=== PATIENT | female | born 1995 | race Two or more races ===

== ENCOUNTER 2017-04-30 19:57 | Inpatient (IN) | payer MEDICAID ==
[~2017-04-30] VITALS: Ht 157.5 cm; Wt 56.7 kg
[2017-04-30 20:10] VITALS: BP 80/65
[2017-04-30] MEDS ORDERED: NKM (20:10)
[2017-04-30] MEDS ORDERED: Morphine Sulfate 4mg/ml Inj IVP ONE (20:45)
[2017-04-30 21:24] LABS: APPEARANCE,URINE VERY CLOUDY; KETONES,URINE 1+ (NEGATIVE); LEUKOCYTE ESTERASE ,URINE 3+ (NEGATIVE); NITRITE,URINE NEGATIVE (NEGATIVE); PH,URINE 5 (4.5-8.0); PROTEIN,URINE 4+ (NEGATIVE); UROBILINOGEN,URINE NORMAL MG/DL (0.0-1.0)
[2017-04-30 21:30] LABS: MEAN CORPUSCULAR HEMOGLOBIN 28.6 PG (27.0-31.0); MEAN CORPUSCULAR HGB CONC 32.7 G/DL (32.0-36.0); MEAN CORPUSCULAR VOLUME 88 FL (80-99); MEAN PLATELET VOLUME 6.7 FL (6.5-10.1); PLATELET COUNT 405 K/UL (150-450); RED BLOOD COUNT 4.78 M/UL (4.20-5.40); RED CELL DISTRIBUTION WIDTH 13.1 % (11.6-14.8)
[2017-04-30 21:33] LABS: CALCIUM 8.9 mg/dL (8.6-10.2); GLOMERULAR FILTRATION RATE 31.5 mL/min (>60); POTASSIUM 4.1 mEQ/L (3.4-4.9); TOTAL PROTEIN 7.3 g/dL (6.6-8.7)
[2017-04-30 21:42] LABS: BACTERIA,URINE MANY /HPF; RBC,URINE TNTC /HPF (0 - 2); SQUAMOUS EPITHELIAL CELL,UR FEW /LPF (NONE/OCC); WBC,URINE TNTC /HPF (0 - 2)
[2017-04-30] MEDS ORDERED: cefTRIAXone 1 GM in NS 55 ML IVPB ONE (22:00)
[2017-04-30 22:10] VITALS: BP 91/59
[2017-04-30 22:31] LABS: BAND NEUTROPHILS % (MANUAL) 16 % (0-8); EOSINOPHILS % (MANUAL) 3 % (0-3); LYMPHOCYTES % (MANUAL) 5 % (20-45); NEUTROPHILS % (MANUAL) 75 % (45-75); TOTAL CELLS COUNTED 100
[2017-04-30 22:33] LABS: BASOPHILS % (MANUAL) 0 % (0-2); PLATELET ESTIMATE INCREASED; PLATELET MORPHOLOGY NORMAL
[2017-04-30 22:34] LABS: MICROCYTES 1+; POLYCHROMASIA 1+
[2017-05-01] VITALS (8 sets, daily range): BP systolic 86–115; BP diastolic 44–76
--- NOTE | 2017-05-01 00:01 | Emergency Room Report ---
History of Present Illness General Chief Complaint: Abdominal Pain Source: Patient Present Illness HPI 21-year-old female with no past medical history. She presents with chief complaint of abdominal pain. She also had fever today. Abdominal pain been ongoing for last few days. Does have dysuria frequency. No hematuria. Nausea but no vomiting. [place] a week. Worse with walking and palpation. No diarrhea. Allergies: Coded Allergies: No Known Allergies (Unverified , 04/30/17) Patient History Past Medical History: none, see triage record, old chart reviewed Past Surgical History: none Pertinent Family History: none Social History: Reports: drug use, smoking Last Menstrual Period: unk Now: No Immunizations: other Reviewed Nursing Documentation: PMH: Agreed, PSxH: Agreed Nursing Documentation-PMH Past Medical History: No Stated History Review of Systems Constitutional: Reports: fever, weakness Eye: Denies: blurred vision, eye pain ENT: Denies: ear pain, nose congestion, throat swelling Respiratory: Denies: cough, shortness of breath Cardiovascular: Denies: chest pain, palpitations Gastrointestinal: Denies: abdominal pain, diarrhea, nausea, vomiting Genitourinary: Reports: dysuria, frequency Musculoskeletal: Denies: back pain, joint pain Skin: Denies: rash Neurological: Denies: headache, numbness Endocrine: Denies: increased thirst, increased urine Hematologic/Lymphatic: Denies: easy bruising All Other Systems: negative except mentioned in HPI Physical Exam Vital Signs Date Time Temp Pulse Resp B/P Pulse Ox O2 Delivery O2 Flow Rate FiO2 04/30/17 20:03 98.2 131 16 79/56 99 Room Air vitals with tachycardia and hypotension Sp02 EP Interpretation: reviewed, normal General Appearance: no apparent distress, alert, other - ill appearing Head: normocephalic, atraumatic Eyes: bilateral eye EOMI, bilateral eye PERRL ENT: hearing grossly normal, normal pharynx Neck: full range of motion, supple, no meningismus Respiratory: chest non-tender, lungs clear, normal breath sounds Cardiovascular #1: regular rate, rhythm, no murmur Gastrointestinal: normal bowel sounds, no mass, no organomegaly, no bruit, non- distended, tenderness - lower abd. Musculoskeletal: back normal, gait/station normal, normal range of motion Psychiatric: mood/affect normal Skin: warm/dry Procedures Critical Care Time Critical Care Time Critical care is mandated in this patient who presented with sepsis secondary to UTI. Patient require my urgent intervention to attenuate the risks of metabolic collapse which may lead to cardiovascular collapse and . Critical care time is 35 minutes excluding any reportable procedure. Critical care time included evaluation, multiple reevaluation, looking at old charts, interpreting laboratory and diagnostic data, discussing case with patient and family and consultants, and charting. Medical Decision Making Diagnostic Impression: Primary Impression: Sepsis Qualified Codes: A41.9 - Sepsis, unspecified organism Additional Impressions: UTI (urinary tract infection) Qualified Codes: N30.00 - Acute cystitis without hematuria Dehydration ANGELA (acute kidney injury) Methamphetamine abuse ER Course Is present with sepsis secondary to UTI. CT scan unremarkable. She felt better after IV fluid. Will admit. No evidence of acute abdomen or traction. Laboratory Tests Test 04/30/17 20:54 White Blood Count 26.0 K/UL (4.8-10.8) *H Red Blood Count 4.78 M/UL (4.20-5.40) Hemoglobin 13.7 G/DL (12.0-16.0) Hematocrit 41.8 % (37.0-47.0) Mean Corpuscular Volume 88 FL (80-99) Mean Corpuscular Hemoglobin 28.6 PG (27.0-31.0) Mean Corpuscular Hemoglobin Concent 32.7 G/DL (32.0-36.0) Red Cell Distribution Width 13.1 % (11.6-14.8) Platelet Count 405 K/UL (150-450) Mean Platelet Volume 6.7 FL (6.5-10.1) Neutrophils (%) (Auto) % (45.0-75.0) Lymphocytes (%) (Auto) % (20.0-45.0) Monocytes (%) (Auto) % (1.0-10.0) Eosinophils (%) (Auto) % (0.0-3.0) Basophils (%) (Auto) % (0.0-2.0) Differential Total Cells Counted 100 Neutrophils % (Manual) 75 % (45-75) Lymphocytes % (Manual) 5 % (20-45) L Monocytes % (Manual) 1 % (1-10) Eosinophils % (Manual) 3 % (0-3) Basophils % (Manual) 0 % (0-2) Band Neutrophils 16 % (0-8) H Platelet Estimate Increased H Platelet Morphology Normal Polychromasia 1+ Microcytosis 1+ Urine Color Yellow Urine Appearance Very cloudy Urine pH 5 (4.5-8.0) Urine Specific [place] 1.020 (1.005-1.035) Urine Protein 4+ (NEGATIVE) H Urine Glucose (UA) 1+ (NEGATIVE) H Urine Ketones 1+ (NEGATIVE) H Urine Occult Blood 5+ (NEGATIVE) H Urine Nitrite Negative (NEGATIVE) Urine Bilirubin Negative (NEGATIVE) Urine Urobilinogen Normal MG/DL (0.0-1.0) Urine Leukocyte Esterase 3+ (NEGATIVE) H Urine RBC Tntc /HPF (0 - 2) H Urine WBC Tntc /HPF (0 - 2) H Urine Squamous Epithelial Cells Few /LPF (NONE/OCC) Urine Bacteria Many /HPF (NONE) H Urine HCG, Qualitative Negative Sodium Level 134 mEQ/L (135-145) L Potassium Level 4.1 mEQ/L (3.4-4.9) Chloride Level 90 mEQ/L (98-107) L Carbon Dioxide Level 22 mEQ/L (20-30) Anion Gap 22 (5-15) H Blood Urea Nitrogen 18 mg/dL (7-23) Creatinine 2.0 mg/dL (0.5-0.9) H Estimat Glomerular Filtration Rate 31.5 mL/min (>60) Glucose Level 96 mg/dL (74-106) Calcium Level 8.9 mg/dL (8.6-10.2) Total Bilirubin 1.0 mg/dL (0.0-1.2) Aspartate Amino Transf (AST/SGOT) 13 U/L (5-40) Alanine Aminotransferase (ALT/SGPT) 6 U/L (3-33) Alkaline Phosphatase 83 U/L (35-104) Total Protein 7.3 g/dL (6.6-8.7) Albumin 3.7 g/dL (3.5-5.2) Globulin 3.6 g/dL Albumin/Globulin Ratio 1.0 (1.0-2.7) Lipase 11 U/L (< 60) Urine Opiates Screen Negative (NEGATIVE) Urine Barbiturates Screen Negative (NEGATIVE) Phencyclidine (PCP) Screen Negative (NEGATIVE) Urine Amphetamines Screen Positive (NEGATIVE) H Urine Benzodiazepines Screen Negative (NEGATIVE) Urine Cocaine Screen Negative (NEGATIVE) Urine Marijuana (THC) Screen Positive (NEGATIVE) H Lab Results Impression labs show leukocytosis and elevated creatinine. Rhythm Strip Diag. Results Rhythm Strip Time: 00:00 EP Interpretation: yes Rate: 94 CT/MRI/US Diagnostic Results CT/MRI/US Diagnostic Results : Imaging Test Ordered: CT abdomen and pelvis Impression read by radiologist. Cystitis. Last Vital Signs Date Time Temp Pulse Resp B/P Pulse Ox O2 Delivery O2 Flow Rate FiO2 04/30/17 20:10 98.2 112 20 80/65 93 Room Air Status: improved Disposition: ADMITTED INPATIENT Condition: Serious Referrals: [facility],REFERRING (PCP) CASTRO OTERO M.D. May 01, 2017 00:01
[2017-05-01] MEDS ORDERED: DuoNeb 0.5-3(2.5)mg/3ml neb HHN PRN (00:30)
[2017-05-01] MEDS ORDERED: Nitroglycerin Subl 0.4mg tab (Bottle Of 25) SL PRN (00:30)
[2017-05-01] MEDS ORDERED: Morphine Sulfate 2mg/ml Inj IVP PRN (00:30)
[2017-05-01] MEDS ORDERED: Miralax 17gm pkt ORAL PRN (00:30)
[2017-05-01] MEDS ORDERED: Vancomycin 1 GM in D5W 275 ML IVPB SCH (01:00)
[2017-05-01] MEDS ORDERED: Vancomycin 1gm inj IVPB ONE (01:38)
[2017-05-01 06:09] LABS: APPEARANCE,URINE CLEAR; KETONES,URINE NEGATIVE (NEGATIVE); LEUKOCYTE ESTERASE ,URINE 2+ (NEGATIVE); NITRITE,URINE NEGATIVE (NEGATIVE); PH,URINE 5 (4.5-8.0); PROTEIN,URINE 2+ (NEGATIVE); UROBILINOGEN,URINE NORMAL MG/DL (0.0-1.0)
[2017-05-01 06:55] LABS: BACTERIA,URINE FEW /HPF; SQUAMOUS EPITHELIAL CELL,UR FEW /LPF (NONE/OCC); WBC,URINE 15-20 /HPF (0 - 2)
[2017-05-01 08:00] LABS: ALANINE AMINOTRANSFERASE 5 U/L (3-33); ANION GAP 19 (5-15); ASPARTATE AMINO TRANSFERASE 17 U/L (5-40); CALCIUM 7.4 mg/dL (8.6-10.2); CARBON DIOXIDE 19 mEQ/L (20-30); CHLORIDE 100 mEQ/L (98-107); CREATININE 1.7 mg/dL (0.5-0.9); GLOMERULAR FILTRATION RATE 37.9 mL/min (>60); HEMOLYSIS 2; MAGNESIUM 1.6 mg/dL (1.7-2.5); PHOSPHORUS 3.9 mg/dL (2.5-4.8); POTASSIUM 3.7 mEQ/L (3.4-4.9); SODIUM 138 mEQ/L (135-145); TOTAL PROTEIN 5.4 g/dL (6.6-8.7); URIC ACID 4.7 mg/dL (3.0-7.5)
[2017-05-01] MEDS: Heparin 5000 units/ml inj SUBQ SCH ×2 (09:00→20:57)
[2017-05-01 09:52] LABS: OTHERS PATHOLOGIST COMMENT
[2017-05-01] MEDS: Cefepime HCl 2 GM in D5W 110 ML IV SCH (10:56)
--- NOTE | 2017-05-01 14:50 | History and Physical ---
History of Present Illness General Date patient seen: May 01, 2017 Reason for Hospitalization: Abdominal Pain Present Illness HPI 21-year-old female with no past medical history presented with chief complaint of abdominal pain fever today. Abdominal pain been ongoing for last few days. Does have dysuria frequency. No hematuria. Nausea but no vomiting. [place] a week. Pt is admitted for sepsis and ATN. Allergies: Coded Allergies: No Known Allergies (Unverified , 04/30/17) Medication History Scheduled No Known Medications* (NKM - No Known Medications*), 0 ., (Reported) Patient History Healthcare decision maker Resuscitation status Full Code Advanced Directive on File Review of Systems All Other Systems: negative except mentioned in HPI Physical Exam General Appearance: WD/WN Lines, tubes and drains: peripheral HEENT: normocephalic, atraumatic Neck: non-tender, normal alignment Respiratory/Chest: chest wall non-tender, lungs clear Cardiovascular/Chest: normal peripheral pulses, regular rhythm Abdomen: normal bowel sounds, non tender Genitourinary/Rectal: normal genital exam, normal rectal exam Extremities: normal range of motion, non-tender, non-pitting Neurologic: unit control clerk II-XII grossly normal Last 24 Hour Vital Signs Date Time Temp Pulse Resp B/P Pulse Ox O2 Delivery O2 Flow Rate FiO2 05/01/17 11:42 97.5 05/01/17 11:35 97.5 89 19 103/53 99 Room Air 05/01/17 08:02 97.7 84 19 99/53 100 Room Air 05/01/17 04:00 98.2 81 19 89/44 99 Room Air 05/01/17 01:20 98.0 80 18 86/50 100 Room Air 05/01/17 00:58 98.2 80 20 90/48 87 Room Air 05/01/17 00:58 98.2 80 20 90/48 97 Room Air 05/01/17 00:10 98.2 88 19 89/47 97 Room Air 04/30/17 22:10 98.2 96 21 91/59 95 Room Air 04/30/17 20:10 98.2 112 20 80/65 93 Room Air 04/30/17 20:03 98.2 131 16 79/56 99 Room Air Intake and Output 04/30/17 05/01/17 19:00 07:00 Intake Total 1026.6 ml Balance 1026.6 ml Intake Oral 60 ml IV Total 966.6 ml # Voids 3 Laboratory Tests Test 04/30/17 20:54 05/01/17 00:05 05/01/17 05:05 05/01/17 05:20 White Blood Count 26.0 K/UL (4.8-10.8) *H Red Blood Count 4.78 M/UL (4.20-5.40) Hemoglobin 13.7 G/DL (12.0-16.0) Hematocrit 41.8 % (37.0-47.0) Mean Corpuscular Volume 88 FL (80-99) Mean Corpuscular Hemoglobin 28.6 PG (27.0-31.0) Mean Corpuscular Hemoglobin Concent 32.7 G/DL (32.0-36.0) Red Cell Distribution Width 13.1 % (11.6-14.8) Platelet Count 405 K/UL (150-450) Mean Platelet Volume 6.7 FL (6.5-10.1) Neutrophils (%) (Auto) % (45.0-75.0) Lymphocytes (%) (Auto) % (20.0-45.0) Monocytes (%) (Auto) % (1.0-10.0) Eosinophils (%) (Auto) % (0.0-3.0) Basophils (%) (Auto) % (0.0-2.0) Differential Total Cells Counted 100 Neutrophils % (Manual) 75 % (45-75) Lymphocytes % (Manual) 5 % (20-45) L Monocytes % (Manual) 1 % (1-10) Eosinophils % (Manual) 3 % (0-3) Basophils % (Manual) 0 % (0-2) Band Neutrophils 16 % (0-8) H Other Cell Type Pathologist comment Platelet Estimate Increased H Platelet Morphology Normal Polychromasia 1+ Microcytosis 1+ Urine Color Yellow Pale yellow Urine Appearance Very cloudy Clear Urine pH 5 (4.5-8.0) 5 (4.5-8.0) Urine Specific [place] 1.020 (1.005-1.035) 1.015 (1.005-1.035) Urine Protein 4+ (NEGATIVE) H 2+ (NEGATIVE) H Urine Glucose (UA) 1+ (NEGATIVE) H 1+ (NEGATIVE) H Urine Ketones 1+ (NEGATIVE) H Negative (NEGATIVE) Urine Occult Blood 5+ (NEGATIVE) H 4+ (NEGATIVE) H Urine Nitrite Negative (NEGATIVE) Negative (NEGATIVE) Urine Bilirubin Negative (NEGATIVE) Negative (NEGATIVE) Urine Urobilinogen Normal MG/DL (0.0-1.0) Normal MG/DL (0.0-1.0) Urine Leukocyte Esterase 3+ (NEGATIVE) H 2+ (NEGATIVE) H Urine RBC Tntc /HPF (0 - 2) H 2-4 /HPF (0 - 2) H Urine WBC Tntc /HPF (0 - 2) H 15-20 /HPF (0 - 2) H Urine Squamous Epithelial Cells Few /LPF (NONE/OCC) Few /LPF (NONE/OCC) Urine Bacteria Many /HPF (NONE) H Few /HPF (NONE) Urine HCG, Qualitative Negative Sodium Level 134 mEQ/L (135-145) L 138 mEQ/L (135-145) Potassium Level 4.1 mEQ/L (3.4-4.9) 3.7 mEQ/L (3.4-4.9) Chloride Level 90 mEQ/L (98-107) L 100 mEQ/L (98-107) Carbon Dioxide Level 22 mEQ/L (20-30) 19 mEQ/L (20-30) L Anion Gap 22 (5-15) H 19 (5-15) H Blood Urea Nitrogen 18 mg/dL (7-23) 20 mg/dL (7-23) Creatinine 2.0 mg/dL (0.5-0.9) H 1.7 mg/dL (0.5-0.9) H Estimat Glomerular Filtration Rate 31.5 mL/min (>60) 37.9 mL/min (>60) Glucose Level 96 mg/dL (74-106) 63 mg/dL (74-106) L Calcium Level 8.9 mg/dL (8.6-10.2) 7.4 mg/dL (8.6-10.2) L Total Bilirubin 1.0 mg/dL (0.0-1.2) 0.4 mg/dL (0.0-1.2) Aspartate Amino Transf (AST/SGOT) 13 U/L (5-40) 17 U/L (5-40) Alanine Aminotransferase (ALT/SGPT) 6 U/L (3-33) 5 U/L (3-33) Alkaline Phosphatase 83 U/L (35-104) 93 U/L (35-104) Total Protein 7.3 g/dL (6.6-8.7) 5.4 g/dL (6.6-8.7) L Albumin 3.7 g/dL (3.5-5.2) 2.8 g/dL (3.5-5.2) L Globulin 3.6 g/dL 2.6 g/dL Albumin/Globulin Ratio 1.0 (1.0-2.7) 1.0 (1.0-2.7) Lipase 11 U/L (< 60) Urine Opiates Screen Negative (NEGATIVE) Urine Barbiturates Screen Negative (NEGATIVE) Phencyclidine (PCP) Screen Negative (NEGATIVE) Urine Amphetamines Screen Positive (NEGATIVE) H Urine Benzodiazepines Screen Negative (NEGATIVE) Urine Cocaine Screen Negative (NEGATIVE) Urine Marijuana (THC) Screen Positive (NEGATIVE) H Lactic Acid Level 1.90 mmol/L (0.66-2.22) Urine Eosinophils None seen Urine Random Sodium 46 mmol/L Uric Acid 4.7 mg/dL (3.0-7.5) Phosphorus Level 3.9 mg/dL (2.5-4.8) Magnesium Level 1.6 mg/dL (1.7-2.5) L Total Creatine Kinase 63 U/L (26-140) Free Thyroxine 0.94 ng/dL (0.86-1.85) Height (Feet): 5 Height (Inches): 2.00 Weight (Pounds): 125 Medications Current Medications Medications (Trade) Dose Ordered Sig/Ara Route PRN Reason Start Time Stop Time Status Last Admin Dose Admin Acetaminophen (Tylenol) 650 mg Q4H PRN ORAL fever 05/01/17 00:30 05/31/17 00:29 Albuterol/ Ipratropium 3 ml 3 ml Q4H PRN HHN Shortness of Breath 05/01/17 00:30 05/06/17 00:29 Cefepime HCl 2 gm/ Dextrose 110 ml @ 220 mls/hr Q24H IV 05/01/17 10:00 05/08/17 09:59 05/01/17 10:56 Dextrose (Dextrose 50%) STAT PRN IV Hypoglycemia 05/01/17 00:30 05/31/17 00:29 Heparin Sodium (Porcine) (Heparin 5000 units/ml) 5,000 units EVERY 12 HOURS SUBQ 05/01/17 09:00 05/31/17 08:59 Morphine Sulfate (Morphine Sulfate) 2 mg Q4H PRN IVP Moderate Pain (Pain Scale 4-6) 05/01/17 00:30 05/08/17 00:29 05/01/17 11:12 Nitroglycerin (Ntg) 0.4 mg Q5M x 3 DOSES PRN SL Prn Chest Pain 05/01/17 00:30 05/31/17 00:29 Ondansetron HCl (Zofran) 4 mg Q6H PRN IVP Nausea & Vomiting 05/01/17 00:30 05/31/17 00:29 Polyethylene Glycol (Miralax) 17 gm DAILYPRN PRN ORAL Constipation 05/01/17 00:30 05/31/17 00:29 Sodium Chloride (Sodium Chloride 1000ml bag) 1,000 ml @ 100 mls/hr Q10H IVLG 05/02/17 00:21 06/01/17 00:20 Temazepam (Restoril) 15 mg HSPRN PRN ORAL Insomnia 05/01/17 00:30 05/08/17 00:29 Vancomycin HCl/ Dextrose (Vancomycin/D5W) 275 ml @ 183.3 mls/ hr Q24H IVPB 05/01/17 01:00 05/06/17 00:59 05/01/17 01:44 Assessment/Plan Problem List: (1) Sepsis ICD Codes: A41.9 - Sepsis, unspecified organism SNOMED: 28481869 Qualifiers: Qualified Codes: A41.9 - Sepsis, unspecified organism (2) ANGELA (acute kidney injury) ICD Codes: N17.9 - Acute kidney failure, unspecified SNOMED: 31715658 (3) Intractable abdominal pain ICD Codes: R10.9 - Unspecified abdominal pain SNOMED: 60643347, 419190315 Assessment/Plan IV abx check cultures check renal studies and CT scan GI evaluation symptomatic treatment. JANEEN STORY May 01, 2017 14:50
[2017-05-01] MEDS: Morphine Sulfate 4mg/ml Inj IVP PRN ×2 (16:00→21:30)
--- NOTE | 2017-05-01 16:11 | GI Initial Consult Note ---
History of Present Illness General Date patient seen: May 01, 2017 Time patient seen: 16:03 Reason for Hospitalization: Abdominal Pain Referring physician: JANEEN LOVETT Reason for Consultation: ABDOMINAL PAIN Present Illness HPI 21-year-old female with no past medical history. She presents with chief complaint of abdominal pain. She also had fever today. Abdominal pain been ongoing for last few days. Does have dysuria frequency. No hematuria. Nausea but no vomiting. [place] a week. Worse with walking and palpation. No diarrhea. GI Consult. HPI as noted above. GI consulted for abdominal pain. Pt seen on floor, awake A&Ox4 NAD but fatigued c/o of abdominal pain tender to touch in all quadrants. The patient presents today with leukocytosis and utox positive for both amphetamines and marijuana. No history of endoscopic procedures. No noted diarrhea at this time. Currently unable to tolerate regular diet. Home Meds Reported Medications No Known Medications* (NKM - No Known Medications*) ., 0 ., 0 Refills 04/30/17 Med list reviewed/reconciled: Yes Allergies: Coded Allergies: No Known Allergies (Unverified , 04/30/17) Patient History PMH Narrative Past Medical History: No Stated History Social History: Reports: alcohol use, drug use, smoking Review of Systems All Other Systems: negative except mentioned in HPI Physical Exam Vital Signs Date Time Temp Pulse Resp B/P Pulse Ox O2 Delivery O2 Flow Rate FiO2 04/30/17 20:03 98.2 131 16 79/56 99 Room Air Sp02 EP Interpretation: reviewed Labs Laboratory Tests Test 04/30/17 20:54 05/01/17 00:05 05/01/17 05:05 05/01/17 05:20 White Blood Count 26.0 K/UL (4.8-10.8) *H Red Blood Count 4.78 M/UL (4.20-5.40) Hemoglobin 13.7 G/DL (12.0-16.0) Hematocrit 41.8 % (37.0-47.0) Mean Corpuscular Volume 88 FL (80-99) Mean Corpuscular Hemoglobin 28.6 PG (27.0-31.0) Mean Corpuscular Hemoglobin Concent 32.7 G/DL (32.0-36.0) Red Cell Distribution Width 13.1 % (11.6-14.8) Platelet Count 405 K/UL (150-450) Mean Platelet Volume 6.7 FL (6.5-10.1) Neutrophils (%) (Auto) % (45.0-75.0) Lymphocytes (%) (Auto) % (20.0-45.0) Monocytes (%) (Auto) % (1.0-10.0) Eosinophils (%) (Auto) % (0.0-3.0) Basophils (%) (Auto) % (0.0-2.0) Differential Total Cells Counted 100 Neutrophils % (Manual) 75 % (45-75) Lymphocytes % (Manual) 5 % (20-45) L Monocytes % (Manual) 1 % (1-10) Eosinophils % (Manual) 3 % (0-3) Basophils % (Manual) 0 % (0-2) Band Neutrophils 16 % (0-8) H Other Cell Type Pathologist comment Platelet Estimate Increased H Platelet Morphology Normal Polychromasia 1+ Microcytosis 1+ Urine Color Yellow Pale yellow Urine Appearance Very cloudy Clear Urine pH 5 (4.5-8.0) 5 (4.5-8.0) Urine Specific [place] 1.020 (1.005-1.035) 1.015 (1.005-1.035) Urine Protein 4+ (NEGATIVE) H 2+ (NEGATIVE) H Urine Glucose (UA) 1+ (NEGATIVE) H 1+ (NEGATIVE) H Urine Ketones 1+ (NEGATIVE) H Negative (NEGATIVE) Urine Occult Blood 5+ (NEGATIVE) H 4+ (NEGATIVE) H Urine Nitrite Negative (NEGATIVE) Negative (NEGATIVE) Urine Bilirubin Negative (NEGATIVE) Negative (NEGATIVE) Urine Urobilinogen Normal MG/DL (0.0-1.0) Normal MG/DL (0.0-1.0) Urine Leukocyte Esterase 3+ (NEGATIVE) H 2+ (NEGATIVE) H Urine RBC Tntc /HPF (0 - 2) H 2-4 /HPF (0 - 2) H Urine WBC Tntc /HPF (0 - 2) H 15-20 /HPF (0 - 2) H Urine Squamous Epithelial Cells Few /LPF (NONE/OCC) Few /LPF (NONE/OCC) Urine Bacteria Many /HPF (NONE) H Few /HPF (NONE) Urine HCG, Qualitative Negative Sodium Level 134 mEQ/L (135-145) L 138 mEQ/L (135-145) Potassium Level 4.1 mEQ/L (3.4-4.9) 3.7 mEQ/L (3.4-4.9) Chloride Level 90 mEQ/L (98-107) L 100 mEQ/L (98-107) Carbon Dioxide Level 22 mEQ/L (20-30) 19 mEQ/L (20-30) L Anion Gap 22 (5-15) H 19 (5-15) H Blood Urea Nitrogen 18 mg/dL (7-23) 20 mg/dL (7-23) Creatinine 2.0 mg/dL (0.5-0.9) H 1.7 mg/dL (0.5-0.9) H Estimat Glomerular Filtration Rate 31.5 mL/min (>60) 37.9 mL/min (>60) Glucose Level 96 mg/dL (74-106) 63 mg/dL (74-106) L Calcium Level 8.9 mg/dL (8.6-10.2) 7.4 mg/dL (8.6-10.2) L Total Bilirubin 1.0 mg/dL (0.0-1.2) 0.4 mg/dL (0.0-1.2) Aspartate Amino Transf (AST/SGOT) 13 U/L (5-40) 17 U/L (5-40) Alanine Aminotransferase (ALT/SGPT) 6 U/L (3-33) 5 U/L (3-33) Alkaline Phosphatase 83 U/L (35-104) 93 U/L (35-104) Total Protein 7.3 g/dL (6.6-8.7) 5.4 g/dL (6.6-8.7) L Albumin 3.7 g/dL (3.5-5.2) 2.8 g/dL (3.5-5.2) L Globulin 3.6 g/dL 2.6 g/dL Albumin/Globulin Ratio 1.0 (1.0-2.7) 1.0 (1.0-2.7) Lipase 11 U/L (< 60) Urine Opiates Screen Negative (NEGATIVE) Urine Barbiturates Screen Negative (NEGATIVE) Phencyclidine (PCP) Screen Negative (NEGATIVE) Urine Amphetamines Screen Positive (NEGATIVE) H Urine Benzodiazepines Screen Negative (NEGATIVE) Urine Cocaine Screen Negative (NEGATIVE) Urine Marijuana (THC) Screen Positive (NEGATIVE) H Lactic Acid Level 1.90 mmol/L (0.66-2.22) Urine Eosinophils None seen Urine Random Sodium 46 mmol/L Uric Acid 4.7 mg/dL (3.0-7.5) Phosphorus Level 3.9 mg/dL (2.5-4.8) Magnesium Level 1.6 mg/dL (1.7-2.5) L Total Creatine Kinase 63 U/L (26-140) Free Thyroxine 0.94 ng/dL (0.86-1.85) General Appearance: alert, thin Head: normocephalic EENT: PERRL/EOMI, normal ENT inspection Neck: supple Respiratory: normal breath sounds, no respiratory distress Cardiovascular: normal rate Gastrointestinal: non tender, soft, normal bowel sounds Rectal: deferred Musculoskeletal: back normal Neurologic: alert, oriented x3, responsive Psychiatric: normal inspection, judgement/insight normal, memory normal Skin: normal inspection, normal color, no rash, warm/dry Lymphatic: normal inspection, no adenopathy Current Medications Current Medications Medications (Trade) Dose Ordered Sig/Ara Route PRN Reason Start Time Stop Time Status Last Admin Dose Admin Acetaminophen (Tylenol) 650 mg Q4H PRN ORAL fever 05/01/17 00:30 05/31/17 00:29 Albuterol/ Ipratropium 3 ml 3 ml Q4H PRN HHN Shortness of Breath 05/01/17 00:30 05/06/17 00:29 Cefepime HCl 2 gm/ Dextrose 110 ml @ 220 mls/hr Q24H IV 05/01/17 10:00 05/08/17 09:59 05/01/17 10:56 Dextrose (Dextrose 50%) STAT PRN IV Hypoglycemia 05/01/17 00:30 05/31/17 00:29 Heparin Sodium (Porcine) (Heparin 5000 units/ml) 5,000 units EVERY 12 HOURS SUBQ 05/01/17 09:00 05/31/17 08:59 Morphine Sulfate (Morphine Sulfate) 4 mg Q4H PRN IVP Moderate Pain (Pain Scale 4-6) 05/01/17 15:00 05/08/17 14:59 05/01/17 16:00 Nitroglycerin (Ntg) 0.4 mg Q5M x 3 DOSES PRN SL Prn Chest Pain 05/01/17 00:30 05/31/17 00:29 Ondansetron HCl (Zofran) 4 mg Q6H PRN IVP Nausea & Vomiting 05/01/17 00:30 05/31/17 00:29 Polyethylene Glycol (Miralax) 17 gm DAILYPRN PRN ORAL Constipation 05/01/17 00:30 05/31/17 00:29 Sodium Chloride (Sodium Chloride 1000ml bag) 1,000 ml @ 100 mls/hr Q10H IVLG 05/02/17 00:21 06/01/17 00:20 Temazepam (Restoril) 15 mg HSPRN PRN ORAL Insomnia 05/01/17 00:30 05/08/17 00:29 Vancomycin HCl/ Dextrose (Vancomycin/D5W) 275 ml @ 183.3 mls/ hr Q24H IVPB 05/01/17 01:00 05/06/17 00:59 05/01/17 01:44 GI: Plan Problems: (1) Methamphetamine abuse (2) Dehydration (3) Sepsis (4) ANGELA (acute kidney injury) (5) Intractable abdominal pain Plan utox positive for amphetamine, marijuana. symptomatic treatment pain mgmt zofran prn FLD, adv as tolerated IVF + electrolyte replacement fu U/S fu labs Discussed with Dr. Leach. Thank you for referring this patient, we will follow. Carly Torres N.P. May 01, 2017 16:11
--- NOTE | 2017-05-01 18:41 | Consultation ---
Consult Note Consult Note ID CONSULT: Dict# [id number] Assessment/Plan ASSESSMENT: 21 y/o female with: // Probable pyelonephritis / UTI - UCx pending // Sepsis 2/2 urinary source // Leukocytosis / bandemia, afebrile // ARF - improved // Hypotension // Dehydration // UDS+ amphetamines, THC // NKDA // Full Code PLAN: - continue empiric cefepime d# . DC IV vancomycin ( doubt MRSA ) - f/u cultures, adjust ABX accordingly - f/u CT A/P - monitor CBC, temperatures - monitor BMP Thanks! Will follow NA [place] May 01, 2017 18:41
--- NOTE | 2017-05-01 23:16 | Consultation ---
DATE OF CONSULTATION: 05/01/2017 INFECTIOUS DISEASE CONSULT REQUESTING PHYSICIAN: Sheryl Velasquez M.D. REASON FOR CONSULTATION: Pyelonephritis. HISTORY OF PRESENT ILLNESS: This is a 21-year-old otherwise healthy female admitted on 04/29/2017 with abdominal pain, fevers, nausea and vomiting. Fevers have now resolved. She meets sepsis criteria with leukocytosis of 26 with 16% bands and tachycardia. Urinalysis suggests probable urinary tract infection. Urine culture, blood cultures and CT of the abdomen and pelvis is pending. She has been started on empiric IV vancomycin and cefepime and ID now consulted to assist in management. PAST MEDICAL HISTORY: None. PAST SURGICAL HISTORY: . ALLERGIES: No known drug allergies. MEDICATIONS: 1. Vancomycin. 2. Cefepime. 3. Status post Rocephin x1. 4. Subcutaneous heparin. FAMILY HISTORY: Diabetes. SOCIAL HISTORY: The patient lives locally. Urine drug screen is positive for amphetamines and marijuana. REVIEW OF SYSTEMS: As per history of present illness. Ten systems reviewed. All pertinent positives and negatives noted. PHYSICAL EXAMINATION: VITAL SIGNS: Maximum temperature 98.2 degrees, blood pressure 93/69, heart rate 107, respiratory rate 20, and saturating 98% on room air. GENERAL: No apparent distress. Mildly toxic appearing. HEENT: No thrush. CARDIOVASCULAR: Tachycardic, no murmurs. PULMONARY: Clear to auscultation bilaterally. ABDOMEN: Bowel sounds present. Soft and nondistended with diffuse tenderness to palpation. EXTREMITIES: No edema. SKIN: No rash. Tattoos present. NEUROLOGIC: Alert and oriented x3. Nonfocal. LABORATORY DATA: White blood cell count 26 with 16% bands, hemoglobin 13.7, and platelets 405,000. Sodium 138, potassium 3.7, chloride 100, bicarbonate 19, BUN 20 and creatinine 1.7 decreased from 2. Lactic acid is 1.9. Liver function tests within normal limits. MICROBIOLOGY: 1. On 05/01/2017, blood culture pending. 2. On 05/01/2017, urine culture pending. IMAGIN. On 04/30/2017, CT of the abdomen and pelvis is pending. ASSESSMENT: 1. Probable pyelonephritis/urinary tract infection. Urine culture is pending. 2. Sepsis secondary to urinary source. 3. Leukocytosis/bandemia, afebrile. 4. Acute renal failure, improving. 5. Hypertension. 6. Dehydration. 7. Urine drug screen positive for amphetamines and marijuana. 8. No known drug allergies. 9. Full Code. PLAN: 1. Continue empiric cefepime day # 1. Discontinue IV vancomycin as doubt MRSA etiology. 2. Follow up cultures and adjust antibiotics accordingly. 3. Follow up CT of the abdomen and pelvis. 4. Monitor CBC and temperatures. 5. Monitor BMP. Thank you. We will follow. Mathew Hsieh M.D. DR: ASHOK JOB#: [id number] CC: Sheryl Velasquez M.D.; Fax#: [phone] Perea M.D; Fax#: [phone]
[2017-05-02] VITALS: BP 110/54
[2017-05-02 04:00] VITALS: BP 120/59
[2017-05-02] MEDS: Morphine Sulfate 4mg/ml Inj IVP PRN ×3 (05:53→20:58)
[2017-05-02 06:50] LABS: MEAN CORPUSCULAR HEMOGLOBIN 28.7 PG (27.0-31.0); MEAN CORPUSCULAR HGB CONC 32.3 G/DL (32.0-36.0); MEAN CORPUSCULAR VOLUME 89 FL (80-99); MEAN PLATELET VOLUME 7.3 FL (6.5-10.1); PLATELET COUNT 370 K/UL (150-450); RED BLOOD COUNT 3.67 M/UL (4.20-5.40); RED CELL DISTRIBUTION WIDTH 13.1 % (11.6-14.8); WHITE BLOOD COUNT 18.3 K/UL (4.8-10.8)
[2017-05-02 07:01] LABS: ALANINE AMINOTRANSFERASE 6 U/L (3-33); ALBUMIN/GLOBULIN RATIO 0.8 (1.0-2.7); ANION GAP 15 (5-15); ASPARTATE AMINO TRANSFERASE 14 U/L (5-40); CALCIUM 8.2 mg/dL (8.6-10.2); CARBON DIOXIDE 19 mEQ/L (20-30); CHLORIDE 100 mEQ/L (98-107); CREATININE 0.8 mg/dL (0.5-0.9); GLOMERULAR FILTRATION RATE > 60 mL/min (>60); HEMOLYSIS 0; POTASSIUM 3.5 mEQ/L (3.4-4.9); SODIUM 134 mEQ/L (135-145); TOTAL PROTEIN 5.5 g/dL (6.6-8.7)
[2017-05-02 07:47] VITALS: BP 118/57
[2017-05-02] MEDS: Heparin 5000 units/ml inj SUBQ SCH ×2 (08:00→21:00)
--- NOTE | 2017-05-02 08:31 | Diagnostic Imaging Report ---
Indication: Lower abdominal pain, diarrhea, vomiting since yesterday Technique: Spiral acquisitions obtained through the abdomen and pelvis. No oral contrast utilized, per emergency room physician request No IV contrast utilized, due to renal insufficiency.. Multiplanar reconstructions were generated. Total dose length product 516 mGycm. CTDIvol(s) mGy. Dose reduction achieved using automated exposure control Comparison: None Findings: Normal appendix. Diffusely fluid-filled upper limits of normal caliber ascending colon. Prominent fluid and small bowel feces also seen within the terminal ileum which is prominent. Collapsed transverse colon. No evidence of diverticulosis or diverticulitis. There is mild generalized edema of the mesenteric fat. There is prominence and perhaps mild wall thickening of left upper quadrant proximal jejunal loops. No small bowel distention otherwise. There is a small amount of fluid within the pelvic cul-de-sac. Distal esophagus, stomach, duodenum are unremarkable. The lack of IV contrast limits assessment of the solid organs. The liver is diffusely enlarged. No focal abnormality. The gallbladder, bile ducts, pancreas, spleen, adrenals, kidneys are unremarkable. No retroperitoneal or mesenteric mass or adenopathy. The uterus is diffusely prominent but without discrete abnormality. No adnexal mass. There is equivocal mild wall thickening of the urinary bladder, probably artifact of under distention. The included lung bases are clear. The bones are unremarkable. Impression: Diffuse mild mesenteric edema, nonspecific. Prominent fluid-filled left upper quadrant small bowel loops with possible wall thickening, enteritis not excludable Nonspecific prominent fluid-filled terminal ileum and ascending colon Hepatomegaly Trace free pelvic fluid, most likely physiologic Prominent uterus without discrete abnormality Equivocal mild urinary bladder wall thickening, probably artifact of under distention This agrees with the preliminary interpretation provided overnight by Dr. Ashraf The CT scanner at [facility] is accredited by the [employer] and the scans are performed using protocols designed to limit radiation exposure to as low as reasonably achievable to attain images of sufficient resolution adequate for diagnostic evaluation.
--- NOTE | 2017-05-02 08:31 | Diagnostic Imaging Report ---
Indication: Abnormal renal function tests, pain during urination Technique: Grayscale and duplex images of the kidneys, retroperitoneum, and bladder were obtained. Comparison:None Findings: Right kidney measures 12 cm in length. Left kidney measures 12.4 cm in length. Both kidneys demonstrate normal echogenicity. No hydronephrosis. No focal abnormality. Normal inferior vena cava. Bladder is normal. Trace free intraperitoneal fluid is demonstrated Impression: Negative right of cirrhosis Incidental finding of trace free intraperitoneal fluid.
[2017-05-02 10:34] LABS: BAND NEUTROPHILS % (MANUAL) 7 % (0-8); BASOPHILS % (MANUAL) 0 % (0-2); EOSINOPHILS % (MANUAL) 3 % (0-3); LYMPHOCYTES % (MANUAL) 11 % (20-45); NEUTROPHILS % (MANUAL) 75 % (45-75); PLATELET ESTIMATE ADEQUATE; PLATELET MORPHOLOGY NORMAL; TOTAL CELLS COUNTED 100
[2017-05-02] MEDS: Cefepime HCl 2 GM in D5W 110 ML IV SCH (11:09)
[2017-05-02 11:20] VITALS: BP 114/61
[2017-05-02] MEDS ORDERED: Tubing IV Secondary IV ONE (15:41)
[2017-05-02] MEDS ORDERED: D5W 275ml ONE (15:41)
[2017-05-02 15:42] VITALS: BP 115/64
--- NOTE | 2017-05-02 16:00 | Pulmonology Progress Note ---
Assessment/Plan Problems: (1) Sepsis (2) ANGELA (acute kidney injury) (3) Intractable abdominal pain Assessment/Plan improving check electrolytes continue abx vanco was dced/ pain control. Subjective ROS Limited/Unobtainable: No Constitutional: Reports: no symptoms HEENT: Repors: no symptoms Allergies: Coded Allergies: No Known Allergies (Unverified , 04/30/17) Objective Last 24 Hour Vital Signs Date Time Temp Pulse Resp B/P Pulse Ox O2 Delivery O2 Flow Rate FiO2 05/02/17 15:42 98.2 82 19 115/64 97 Room Air 05/02/17 15:41 98.2 05/02/17 11:20 98.1 77 18 114/61 98 Room Air 05/02/17 08:29 99.0 05/02/17 07:47 99.0 98 19 118/57 99 Room Air 05/02/17 06:34 98 18 Room Air 05/02/17 04:00 99.6 80 17 120/59 100 Room Air 05/02/17 00:00 100.0 97 17 110/54 100 Room Air 05/01/17 19:57 98.6 89 17 115/76 100 Room Air 05/01/17 19:24 94 18 Room Air 05/01/17 16:30 98.4 Intake and Output 05/01/17 05/02/17 19:00 07:00 Intake Total 1640 ml 1560 ml Balance 1640 ml 1560 ml Intake Oral 620 ml 360 ml IV Total 1020 ml 1200 ml # Voids 5 4 General Appearance: WD/WN HEENT: normocephalic, atraumatic Respiratory/Chest: chest wall non-tender, lungs clear Cardiovascular: normal peripheral pulses, regular rhythm Genitourinary: normal external genitalia Extremities: no cyanosis 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, no motor/sensory deficits Microbiology Date/Time Source Procedure Growth Status 05/01/17 00:15 Blood Blood Culture - Preliminary NO GROWTH AFTER 24 HOURS Resulted 05/01/17 00:05 Blood Blood Culture - Preliminary NO GROWTH AFTER 24 HOURS Resulted 05/01/17 05:05 Urine,Clean Catch Urine Culture - Preliminary NO GROWTH AFTER 24 HOURS Resulted 04/30/17 20:54 Urine,Clean Catch Urine Culture - Preliminary Mixed Gram Positive Organism Resulted Laboratory Tests 05/02/17 05:20: White Blood Count 18.3H, Red Blood Count 3.67L, Hemoglobin 10.5L, Hematocrit 32.6L, Mean Corpuscular Volume 89, Mean Corpuscular Hemoglobin 28.7, Mean Corpuscular Hemoglobin Concent 32.3, Red Cell Distribution Width 13.1, Platelet Count 370, Mean Platelet Volume 7.3, Neutrophils (%) (Auto) , Lymphocytes (%) ( Auto) , Monocytes (%) (Auto) , Eosinophils (%) (Auto) , Basophils (%) (Auto) , Differential Total Cells Counted 100, Neutrophils % (Manual) 75, Lymphocytes % ( Manual) 11L, Monocytes % (Manual) 4, Eosinophils % (Manual) 3, Basophils % ( Manual) 0, Band Neutrophils 7, Platelet Estimate Adequate, Platelet Morphology Normal, Red Blood Cell Morphology Normal, Sodium Level 134L, Potassium Level 3.5 , Chloride Level 100, Carbon Dioxide Level 19L, Anion Gap 15, Blood Urea Nitrogen 7, Creatinine 0.8#, Estimat Glomerular Filtration Rate > 60, Glucose Level 89, Calcium Level 8.2L, Total Bilirubin 0.4, Aspartate Amino Transf (AST/ SGOT) 14, Alanine Aminotransferase (ALT/SGPT) 6, Alkaline Phosphatase 90, Total Protein 5.5L, Albumin 2.6L, Globulin 2.9, Albumin/Globulin Ratio 0.8L Current Medications Medications (Trade) Dose Ordered Sig/Ara Route PRN Reason Start Time Stop Time Status Last Admin Dose Admin Acetaminophen (Tylenol) 650 mg Q4H PRN ORAL fever 05/01/17 00:30 05/31/17 00:29 05/02/17 07:30 Albuterol/ Ipratropium 3 ml 3 ml Q4H PRN HHN Shortness of Breath 05/01/17 00:30 05/06/17 00:29 Cefepime HCl/ Dextrose (Maxipime/D5W) 110 ml @ 220 mls/hr Q24H IV 05/01/17 10:00 05/08/17 09:59 05/02/17 11:09 Dextrose (Dextrose 50%) STAT PRN IV Hypoglycemia 05/01/17 00:30 05/31/17 00:29 Heparin Sodium (Porcine) (Heparin 5000 units/ml) 5,000 units EVERY 12 HOURS SUBQ 05/01/17 09:00 05/31/17 08:59 Morphine Sulfate (Morphine Sulfate) 3 mg Q4H PRN IVP Moderate Pain (Pain Scale 4-6) 05/02/17 15:30 05/09/17 15:29 05/02/17 15:11 Nitroglycerin (Ntg) 0.4 mg Q5M x 3 DOSES PRN SL Prn Chest Pain 05/01/17 00:30 05/31/17 00:29 Ondansetron HCl (Zofran) 4 mg Q6H PRN IVP Nausea & Vomiting 05/01/17 00:30 05/31/17 00:29 Polyethylene Glycol (Miralax) 17 gm DAILYPRN PRN ORAL Constipation 05/01/17 00:30 05/31/17 00:29 Sodium Chloride (Sodium Chloride 1000ml bag) 1,000 ml @ 100 mls/hr Q10H IVLG 05/02/17 00:21 06/01/17 00:20 05/02/17 10:30 Temazepam (Restoril) 15 mg HSPRN PRN ORAL Insomnia 05/01/17 00:30 05/08/17 00:29 JANEEN STORY May 02, 2017 16:00
--- NOTE | 2017-05-02 16:11 | GI Progress Note ---
Assessment/Plan Problems: (1) Intractable abdominal pain ICD Codes: R10.9 - Unspecified abdominal pain SNOMED: 56743117, 364243115 (2) UTI (urinary tract infection) ICD Codes: N39.0 - Urinary tract infection, site not specified SNOMED: 38490396 Qualifiers: Qualified Codes: N30.00 - Acute cystitis without hematuria (3) ANGELA (acute kidney injury) ICD Codes: N17.9 - Acute kidney failure, unspecified SNOMED: 68548616 (4) Dehydration ICD Codes: E86.0 - Dehydration SNOMED: 36998238 (5) Methamphetamine abuse ICD Codes: F15.10 - Other stimulant abuse, uncomplicated SNOMED: 448013567 (6) Sepsis ICD Codes: A41.9 - Sepsis, unspecified organism SNOMED: 90333042 Qualifiers: Qualified Codes: A41.9 - Sepsis, unspecified organism Status: progressing Status Narrative Discussed with Dr. Leach. Assessment/Plan utox positive for amphetamine, marijuana. symptomatic treatment pain mgmt zofran prn adv to soft diet tonight IVF + electrolyte replacement fu labs Subjective Gastrointestinal/Abdominal: Reports: abdominal pain Subjective abdominal pain improved able to tolerate FLD Objective Last 24 Hour Vital Signs Date Time Temp Pulse Resp B/P Pulse Ox O2 Delivery O2 Flow Rate FiO2 05/02/17 15:42 98.2 82 19 115/64 97 Room Air 05/02/17 15:41 98.2 05/02/17 11:20 98.1 77 18 114/61 98 Room Air 05/02/17 08:29 99.0 05/02/17 07:47 99.0 98 19 118/57 99 Room Air 05/02/17 06:34 98 18 Room Air 05/02/17 04:00 99.6 80 17 120/59 100 Room Air 05/02/17 00:00 100.0 97 17 110/54 100 Room Air 05/01/17 19:57 98.6 89 17 115/76 100 Room Air 05/01/17 19:24 94 18 Room Air 05/01/17 16:30 98.4 Intake and Output 05/01/17 05/02/17 19:00 07:00 Intake Total 1640 ml 1560 ml Balance 1640 ml 1560 ml Intake Oral 620 ml 360 ml IV Total 1020 ml 1200 ml # Voids 5 4 Laboratory Tests Test 05/02/17 05:20 White Blood Count 18.3 K/UL (4.8-10.8) H Red Blood Count 3.67 M/UL (4.20-5.40) L Hemoglobin 10.5 G/DL (12.0-16.0) L Hematocrit 32.6 % (37.0-47.0) L Mean Corpuscular Volume 89 FL (80-99) Mean Corpuscular Hemoglobin 28.7 PG (27.0-31.0) Mean Corpuscular Hemoglobin Concent 32.3 G/DL (32.0-36.0) Red Cell Distribution Width 13.1 % (11.6-14.8) Platelet Count 370 K/UL (150-450) Mean Platelet Volume 7.3 FL (6.5-10.1) Neutrophils (%) (Auto) % (45.0-75.0) Lymphocytes (%) (Auto) % (20.0-45.0) Monocytes (%) (Auto) % (1.0-10.0) Eosinophils (%) (Auto) % (0.0-3.0) Basophils (%) (Auto) % (0.0-2.0) Differential Total Cells Counted 100 Neutrophils % (Manual) 75 % (45-75) Lymphocytes % (Manual) 11 % (20-45) L Monocytes % (Manual) 4 % (1-10) Eosinophils % (Manual) 3 % (0-3) Basophils % (Manual) 0 % (0-2) Band Neutrophils 7 % (0-8) Platelet Estimate Adequate Platelet Morphology Normal Red Blood Cell Morphology Normal Sodium Level 134 mEQ/L (135-145) L Potassium Level 3.5 mEQ/L (3.4-4.9) Chloride Level 100 mEQ/L (98-107) Carbon Dioxide Level 19 mEQ/L (20-30) L Anion Gap 15 (5-15) Blood Urea Nitrogen 7 mg/dL (7-23) Creatinine 0.8 mg/dL (0.5-0.9) # Estimat Glomerular Filtration Rate > 60 mL/min (>60) Glucose Level 89 mg/dL (74-106) Calcium Level 8.2 mg/dL (8.6-10.2) L Total Bilirubin 0.4 mg/dL (0.0-1.2) Aspartate Amino Transf (AST/SGOT) 14 U/L (5-40) Alanine Aminotransferase (ALT/SGPT) 6 U/L (3-33) Alkaline Phosphatase 90 U/L (35-104) Total Protein 5.5 g/dL (6.6-8.7) L Albumin 2.6 g/dL (3.5-5.2) L Globulin 2.9 g/dL Albumin/Globulin Ratio 0.8 (1.0-2.7) L Height (Feet): 5 Height (Inches): 2.00 Weight (Pounds): 125 General Appearance: no apparent distress, alert, thin Cardiovascular: normal rate Respiratory/Chest: normal breath sounds, no respiratory distress Abdominal Exam: normal bowel sounds, non tender, soft Extremities: normal range of motion Carly Torres N.P. May 02, 2017 16:11
--- NOTE | 2017-05-02 19:02 | Infectious Diseases Prog Note ---
Assessment/Plan Assessment/Plan ASSESSMENT: 21 y/o female with: // Probable pyelonephritis / UTI - UCx mixed GP, repeat pending - CT A/P: kidneys are unremarkable, equivocal mild wall thickening of the urinary bladder // Enteritis / mesenteritis - CT A/P: Diffuse mild mesenteric edema, nonspecific. Prominent fluid- filled left upper quadrant small bowel loops with possible wall thickening, enteritis not excludable. Nonspecific prominent fluid-filled terminal ileum and ascending colon // Sepsis // Leukocytosis / bandemia - improved, afebrile // ARF - improved // Hypotension // Dehydration // UDS+ amphetamines, THC // NKDA // Full Code PLAN: - continue empiric cefepime d# 2 / 14 pending culture ( 05/01 SP IV vancomycin d# 1 ) - f/u cultures, adjust ABX accordingly - f/u CT A/P - monitor CBC, temperatures - monitor BMP Subjective Allergies: Coded Allergies: No Known Allergies (Unverified , 04/30/17) Subjective low grade fever x1 c/o abdo pain Objective Vital Signs Last 24 Hour Vital Signs Date Time Temp Pulse Resp B/P Pulse Ox O2 Delivery O2 Flow Rate FiO2 05/02/17 15:42 98.2 82 19 115/64 97 Room Air 05/02/17 15:41 98.2 05/02/17 11:20 98.1 77 18 114/61 98 Room Air 05/02/17 08:29 99.0 05/02/17 07:47 99.0 98 19 118/57 99 Room Air 05/02/17 06:34 98 18 Room Air 05/02/17 04:00 99.6 80 17 120/59 100 Room Air 05/02/17 00:00 100.0 97 17 110/54 100 Room Air 05/01/17 19:57 98.6 89 17 115/76 100 Room Air 05/01/17 19:24 94 18 Room Air Height (Feet): 5 Height (Inches): 2.00 Weight (Pounds): 125 General Appearance: no acute distress Respiratory/Chest: no respiratory distress Cardiovascular: normal rate, regular rhythm Abdomen: normal bowel sounds, non distended, tender Extremities: no edema Microbiology Date/Time Source Procedure Growth Status 05/01/17 00:15 Blood Blood Culture - Preliminary NO GROWTH AFTER 24 HOURS Resulted 05/01/17 00:05 Blood Blood Culture - Preliminary NO GROWTH AFTER 24 HOURS Resulted 05/01/17 05:05 Urine,Clean Catch Urine Culture - Preliminary NO GROWTH AFTER 24 HOURS Resulted 04/30/17 20:54 Urine,Clean Catch Urine Culture - Preliminary Mixed Gram Positive Organism Resulted Laboratory Tests Test 05/02/17 05:20 White Blood Count 18.3 K/UL (4.8-10.8) H Red Blood Count 3.67 M/UL (4.20-5.40) L Hemoglobin 10.5 G/DL (12.0-16.0) L Hematocrit 32.6 % (37.0-47.0) L Mean Corpuscular Volume 89 FL (80-99) Mean Corpuscular Hemoglobin 28.7 PG (27.0-31.0) Mean Corpuscular Hemoglobin Concent 32.3 G/DL (32.0-36.0) Red Cell Distribution Width 13.1 % (11.6-14.8) Platelet Count 370 K/UL (150-450) Mean Platelet Volume 7.3 FL (6.5-10.1) Neutrophils (%) (Auto) % (45.0-75.0) Lymphocytes (%) (Auto) % (20.0-45.0) Monocytes (%) (Auto) % (1.0-10.0) Eosinophils (%) (Auto) % (0.0-3.0) Basophils (%) (Auto) % (0.0-2.0) Differential Total Cells Counted 100 Neutrophils % (Manual) 75 % (45-75) Lymphocytes % (Manual) 11 % (20-45) L Monocytes % (Manual) 4 % (1-10) Eosinophils % (Manual) 3 % (0-3) Basophils % (Manual) 0 % (0-2) Band Neutrophils 7 % (0-8) Platelet Estimate Adequate Platelet Morphology Normal Red Blood Cell Morphology Normal Sodium Level 134 mEQ/L (135-145) L Potassium Level 3.5 mEQ/L (3.4-4.9) Chloride Level 100 mEQ/L (98-107) Carbon Dioxide Level 19 mEQ/L (20-30) L Anion Gap 15 (5-15) Blood Urea Nitrogen 7 mg/dL (7-23) Creatinine 0.8 mg/dL (0.5-0.9) # Estimat Glomerular Filtration Rate > 60 mL/min (>60) Glucose Level 89 mg/dL (74-106) Calcium Level 8.2 mg/dL (8.6-10.2) L Total Bilirubin 0.4 mg/dL (0.0-1.2) Aspartate Amino Transf (AST/SGOT) 14 U/L (5-40) Alanine Aminotransferase (ALT/SGPT) 6 U/L (3-33) Alkaline Phosphatase 90 U/L (35-104) Total Protein 5.5 g/dL (6.6-8.7) L Albumin 2.6 g/dL (3.5-5.2) L Globulin 2.9 g/dL Albumin/Globulin Ratio 0.8 (1.0-2.7) L Current Medications Medications (Trade) Dose Ordered Sig/Ara Route PRN Reason Start Time Stop Time Status Last Admin Dose Admin Acetaminophen (Tylenol) 650 mg Q4H PRN ORAL fever 05/01/17 00:30 05/31/17 00:29 05/02/17 07:30 Albuterol/ Ipratropium (DuoNeb 0.5-3(2.5)mg/3ml) 3 ml Q4H PRN HHN Shortness of Breath 05/01/17 00:30 05/06/17 00:29 Cefepime HCl/ Dextrose (Maxipime/D5W) 110 ml @ 220 mls/hr Q12HR@1100,2300 IV 05/02/17 23:00 05/09/17 22:59 Dextrose (Dextrose 50%) STAT PRN IV Hypoglycemia 05/01/17 00:30 05/31/17 00:29 Heparin Sodium (Porcine) (Heparin 5000 units/ml) 5,000 units EVERY 12 HOURS SUBQ 05/01/17 09:00 05/31/17 08:59 Morphine Sulfate 3 mg 3 mg Q4H PRN IVP Moderate Pain (Pain Scale 4-6) 05/02/17 15:30 05/09/17 15:29 05/02/17 15:11 Nitroglycerin (Ntg) 0.4 mg Q5M x 3 DOSES PRN SL Prn Chest Pain 05/01/17 00:30 05/31/17 00:29 Ondansetron HCl (Zofran) 4 mg Q6H PRN IVP Nausea & Vomiting 05/01/17 00:30 05/31/17 00:29 Polyethylene Glycol (Miralax) 17 gm DAILYPRN PRN ORAL Constipation 05/01/17 00:30 05/31/17 00:29 Sodium Chloride (Sodium Chloride 1000ml bag) 1,000 ml @ 100 mls/hr Q10H IVLG 05/02/17 00:21 06/01/17 00:20 05/02/17 10:30 Temazepam (Restoril) 15 mg HSPRN PRN ORAL Insomnia 05/01/17 00:30 05/08/17 00:29 NA CORONA May 02, 2017 19:02
[2017-05-02 20:00] VITALS: BP 138/58
[2017-05-02] MEDS: Cefepime 2gm/D5W 110ml IV SCH ×2 (23:27)
[2017-05-03] VITALS: BP 129/66
[2017-05-03] MEDS: Morphine Sulfate 4mg/ml Inj IVP PRN ×3 (03:25→15:14)
[2017-05-03 04:00] VITALS: BP 127/55
[2017-05-03 07:38] LABS: BASOPHILS % (AUTO) 0.5 % (0.0-2.0); EOSINOPHILS % (AUTO) 2.8 % (0.0-3.0); LYMPHOCYTES % (AUTO) 18.5 % (20.0-45.0); MEAN CORPUSCULAR HEMOGLOBIN 28.9 PG (27.0-31.0); MEAN CORPUSCULAR HGB CONC 32.6 G/DL (32.0-36.0); MEAN CORPUSCULAR VOLUME 88 FL (80-99); MEAN PLATELET VOLUME 6.7 FL (6.5-10.1); MONOCYTES % (AUTO) 10.8 % (1.0-10.0); NEUTROPHILS % (AUTO) 67.3 % (45.0-75.0); PLATELET COUNT 390 K/UL (150-450); RED CELL DISTRIBUTION WIDTH 13.3 % (11.6-14.8); WHITE BLOOD COUNT 12.8 K/UL (4.8-10.8)
[2017-05-03 07:58] VITALS: BP 125/76
[2017-05-03 08:09] LABS: ANION GAP 15 (5-15); CALCIUM 8.3 mg/dL (8.6-10.2); CARBON DIOXIDE 22 mEQ/L (20-30); CHLORIDE 102 mEQ/L (98-107); CREATININE 0.6 mg/dL (0.5-0.9); GLOMERULAR FILTRATION RATE > 60 mL/min (>60); HEMOLYSIS 11; POTASSIUM 3.4 mEQ/L (3.4-4.9); SODIUM 139 mEQ/L (135-145)
[2017-05-03] MEDS: Heparin 5000 units/ml inj SUBQ SCH (08:38)
--- NOTE | 2017-05-03 08:48 | Infectious Diseases Prog Note ---
Assessment/Plan Assessment/Plan ASSESSMENT: 21 y/o female with: // Probable pyelonephritis / UTI - UCx mixed GP, repeat UCx : eng - CT A/P: kidneys are unremarkable, equivocal mild wall thickening of the urinary bladder // Enteritis / mesenteritis - CT A/P: Diffuse mild mesenteric edema, nonspecific. Prominent fluid- filled left upper quadrant small bowel loops with possible wall thickening, enteritis not excludable. Nonspecific prominent fluid-filled terminal ileum and ascending colon // Sepsis , improving // Leukocytosis / bandemia - improved // Fever , SP // ARF - improved // Hypotension // Dehydration // UDS+ amphetamines, THC // NKDA // Full Code PLAN: - continue empiric cefepime d# 3 / 7 , upon DC will change to Levaquin to complete the course ( 05/01 SP IV vancomycin d# 1 ) - f/u cultures ( Bl ) - monitor CBC, temperatures - monitor BMP Subjective Constitutional: Denies: anorexia, chills, drenching sweats, fatigue, fever, no symptoms, other Allergies: Coded Allergies: No Known Allergies (Unverified , 04/30/17) Objective Vital Signs Last 24 Hour Vital Signs Date Time Temp Pulse Resp B/P Pulse Ox O2 Delivery O2 Flow Rate FiO2 05/03/17 07:58 98.1 81 18 125/76 100 Room Air 05/03/17 07:58 82 18 Room Air 05/03/17 06:02 98.8 05/03/17 04:00 98.8 87 19 127/55 100 Nasal Cannula 2.0 05/03/17 03:55 98.8 05/03/17 00:00 98.2 87 18 129/66 95 Room Air 05/02/17 20:00 98.4 96 20 138/58 99 Room Air 05/02/17 19:01 99 18 Room Air 05/02/17 15:42 98.2 82 19 115/64 97 Room Air 05/02/17 11:20 98.1 77 18 114/61 98 Room Air Height (Feet): 5 Height (Inches): 2.00 Weight (Pounds): 125 HEENT: atraumatic Respiratory/Chest: no respiratory distress Cardiovascular: normal peripheral pulses Abdomen: soft, non tender Microbiology Date/Time Source Procedure Growth Status 05/01/17 00:15 Blood Blood Culture - Preliminary NO GROWTH AFTER 48 HOURS Resulted 05/01/17 00:05 Blood Blood Culture - Preliminary NO GROWTH AFTER 48 HOURS Resulted 05/01/17 05:05 Urine,Clean Catch Urine Culture - Final NO GROWTH AFTER 48 HOURS Complete 04/30/17 20:54 Urine,Clean Catch Urine Culture - Final Mixed Gram Positive Organism Complete Laboratory Tests Test 05/03/17 06:15 White Blood Count 12.8 K/UL (4.8-10.8) H Red Blood Count 3.40 M/UL (4.20-5.40) L Hemoglobin 9.8 G/DL (12.0-16.0) L Hematocrit 30.1 % (37.0-47.0) L Mean Corpuscular Volume 88 FL (80-99) Mean Corpuscular Hemoglobin 28.9 PG (27.0-31.0) Mean Corpuscular Hemoglobin Concent 32.6 G/DL (32.0-36.0) Red Cell Distribution Width 13.3 % (11.6-14.8) Platelet Count 390 K/UL (150-450) Mean Platelet Volume 6.7 FL (6.5-10.1) Neutrophils (%) (Auto) 67.3 % (45.0-75.0) Lymphocytes (%) (Auto) 18.5 % (20.0-45.0) L Monocytes (%) (Auto) 10.8 % (1.0-10.0) H Eosinophils (%) (Auto) 2.8 % (0.0-3.0) Basophils (%) (Auto) 0.5 % (0.0-2.0) Sodium Level 139 mEQ/L (135-145) Potassium Level 3.4 mEQ/L (3.4-4.9) Chloride Level 102 mEQ/L (98-107) Carbon Dioxide Level 22 mEQ/L (20-30) Anion Gap 15 (5-15) Blood Urea Nitrogen 3 mg/dL (7-23) L Creatinine 0.6 mg/dL (0.5-0.9) Estimat Glomerular Filtration Rate > 60 mL/min (>60) Glucose Level 91 mg/dL (74-106) Calcium Level 8.3 mg/dL (8.6-10.2) L Current Medications Medications (Trade) Dose Ordered Sig/Ara Route PRN Reason Start Time Stop Time Status Last Admin Dose Admin Acetaminophen (Tylenol) 650 mg Q4H PRN ORAL fever 05/01/17 00:30 05/31/17 00:29 05/03/17 03:26 Albuterol/ Ipratropium (DuoNeb 0.5-3(2.5)mg/3ml) 3 ml Q4H PRN HHN Shortness of Breath 05/01/17 00:30 05/06/17 00:29 Cefepime HCl/ Dextrose (Maxipime/D5W) 110 ml @ 220 mls/hr Q12HR@1100,2300 IV 05/02/17 23:00 05/09/17 22:59 05/02/17 23:27 Dextrose (Dextrose 50%) STAT PRN IV Hypoglycemia 05/01/17 00:30 05/31/17 00:29 Heparin Sodium (Porcine) (Heparin 5000 units/ml) 5,000 units EVERY 12 HOURS SUBQ 05/01/17 09:00 05/31/17 08:59 Morphine Sulfate 3 mg 3 mg Q4H PRN IVP Moderate Pain (Pain Scale 4-6) 05/02/17 15:30 05/09/17 15:29 05/03/17 08:32 Nitroglycerin (Ntg) 0.4 mg Q5M x 3 DOSES PRN SL Prn Chest Pain 05/01/17 00:30 05/31/17 00:29 Ondansetron HCl (Zofran) 4 mg Q6H PRN IVP Nausea & Vomiting 05/01/17 00:30 05/31/17 00:29 Polyethylene Glycol (Miralax) 17 gm DAILYPRN PRN ORAL Constipation 05/01/17 00:30 05/31/17 00:29 Sodium Chloride (Sodium Chloride 1000ml bag) 1,000 ml @ 100 mls/hr Q10H IVLG 05/02/17 00:21 06/01/17 00:20 05/02/17 10:30 Temazepam (Restoril) 15 mg HSPRN PRN ORAL Insomnia 05/01/17 00:30 05/08/17 00:29 ANDI ALVARENGA M.D. May 03, 2017 08:48
[2017-05-03] MEDS: Cefepime 2gm/D5W 110ml IV SCH ×2 (10:10)
--- NOTE | 2017-05-03 11:53 | GI Progress Note ---
Assessment/Plan Problems: (1) Intractable abdominal pain ICD Codes: R10.9 - Unspecified abdominal pain SNOMED: 53529453, 930480192 (2) UTI (urinary tract infection) ICD Codes: N39.0 - Urinary tract infection, site not specified SNOMED: 21038510 Qualifiers: Qualified Codes: N30.00 - Acute cystitis without hematuria (3) ANGELA (acute kidney injury) ICD Codes: N17.9 - Acute kidney failure, unspecified SNOMED: 75739199 (4) Dehydration ICD Codes: E86.0 - Dehydration SNOMED: 60178581 (5) Methamphetamine abuse ICD Codes: F15.10 - Other stimulant abuse, uncomplicated SNOMED: 088415960 (6) Sepsis ICD Codes: A41.9 - Sepsis, unspecified organism SNOMED: 87445188 Qualifiers: Qualified Codes: A41.9 - Sepsis, unspecified organism Status: stable Status Narrative Discussed with Dr. Leach. Assessment/Plan utox positive for amphetamine, marijuana. symptomatic treatment pain mgmt zofran prn soft diet, tolerating electrolyte replacement fu labs Subjective Subjective abdominal pain improved able to tolerate soft diet Objective Last 24 Hour Vital Signs Date Time Temp Pulse Resp B/P Pulse Ox O2 Delivery O2 Flow Rate FiO2 05/03/17 07:58 98.1 81 18 125/76 100 Room Air 05/03/17 07:58 82 18 Room Air 05/03/17 06:02 98.8 05/03/17 04:00 98.8 87 19 127/55 100 Nasal Cannula 2.0 05/03/17 03:55 98.8 05/03/17 00:00 98.2 87 18 129/66 95 Room Air 05/02/17 20:00 98.4 96 20 138/58 99 Room Air 05/02/17 19:01 99 18 Room Air 05/02/17 15:42 98.2 82 19 115/64 97 Room Air Intake and Output 05/02/17 05/03/17 19:00 07:00 Intake Total 1970 ml 650 ml Balance 1970 ml 650 ml Intake Oral 650 ml 240 ml IV Total 1320 ml 410 ml # Voids 5 3 Laboratory Tests Test 05/03/17 06:15 White Blood Count 12.8 K/UL (4.8-10.8) H Red Blood Count 3.40 M/UL (4.20-5.40) L Hemoglobin 9.8 G/DL (12.0-16.0) L Hematocrit 30.1 % (37.0-47.0) L Mean Corpuscular Volume 88 FL (80-99) Mean Corpuscular Hemoglobin 28.9 PG (27.0-31.0) Mean Corpuscular Hemoglobin Concent 32.6 G/DL (32.0-36.0) Red Cell Distribution Width 13.3 % (11.6-14.8) Platelet Count 390 K/UL (150-450) Mean Platelet Volume 6.7 FL (6.5-10.1) Neutrophils (%) (Auto) 67.3 % (45.0-75.0) Lymphocytes (%) (Auto) 18.5 % (20.0-45.0) L Monocytes (%) (Auto) 10.8 % (1.0-10.0) H Eosinophils (%) (Auto) 2.8 % (0.0-3.0) Basophils (%) (Auto) 0.5 % (0.0-2.0) Sodium Level 139 mEQ/L (135-145) Potassium Level 3.4 mEQ/L (3.4-4.9) Chloride Level 102 mEQ/L (98-107) Carbon Dioxide Level 22 mEQ/L (20-30) Anion Gap 15 (5-15) Blood Urea Nitrogen 3 mg/dL (7-23) L Creatinine 0.6 mg/dL (0.5-0.9) Estimat Glomerular Filtration Rate > 60 mL/min (>60) Glucose Level 91 mg/dL (74-106) Calcium Level 8.3 mg/dL (8.6-10.2) L Height (Feet): 5 Height (Inches): 2.00 Weight (Pounds): 125 General Appearance: no apparent distress, alert Cardiovascular: normal rate Respiratory/Chest: normal breath sounds, no respiratory distress Abdominal Exam: normal bowel sounds, non tender, soft Extremities: normal range of motion Carly Torres N.P. May 03, 2017 11:53
[2017-05-03 11:54] VITALS: BP 132/88
--- NOTE | 2017-05-03 15:27 | Pulmonology Progress Note ---
Assessment/Plan Problems: (1) Sepsis (2) ANGELA (acute kidney injury) (3) Intractable abdominal pain Assessment/Plan improving check electrolytes continue abx, od cefepime pain control. probablly dc home in am with oral abx Subjective ROS Limited/Unobtainable: No Constitutional: Reports: no symptoms HEENT: Repors: no symptoms Allergies: Coded Allergies: No Known Allergies (Unverified , 04/30/17) Objective Last 24 Hour Vital Signs Date Time Temp Pulse Resp B/P Pulse Ox O2 Delivery O2 Flow Rate FiO2 05/03/17 11:54 98.1 89 18 132/88 100 Room Air 05/03/17 07:58 98.1 81 18 125/76 100 Room Air 05/03/17 07:58 82 18 Room Air 05/03/17 06:02 98.8 05/03/17 04:00 98.8 87 19 127/55 100 Nasal Cannula 2.0 05/03/17 03:55 98.8 05/03/17 00:00 98.2 87 18 129/66 95 Room Air 05/02/17 20:00 98.4 96 20 138/58 99 Room Air 05/02/17 19:01 99 18 Room Air 05/02/17 15:42 98.2 82 19 115/64 97 Room Air Intake and Output 05/02/17 05/03/17 19:00 07:00 Intake Total 1970 ml 650 ml Balance 1970 ml 650 ml Intake Oral 650 ml 240 ml IV Total 1320 ml 410 ml # Voids 5 3 General Appearance: WD/WN HEENT: normocephalic, atraumatic Respiratory/Chest: chest wall non-tender, lungs clear Cardiovascular: normal peripheral pulses, normal rate Abdomen: normal bowel sounds, soft, non tender Genitourinary: normal external genitalia Extremities: no cyanosis Skin: no rash Neurologic/Psychiatric: box maker II-XII grossly normal Microbiology Date/Time Source Procedure Growth Status 05/01/17 00:15 Blood Blood Culture - Preliminary NO GROWTH AFTER 48 HOURS Resulted 05/01/17 00:05 Blood Blood Culture - Preliminary NO GROWTH AFTER 48 HOURS Resulted 05/01/17 05:05 Urine,Clean Catch Urine Culture - Final NO GROWTH AFTER 48 HOURS Complete 04/30/17 20:54 Urine,Clean Catch Urine Culture - Final Mixed Gram Positive Organism Complete Laboratory Tests 05/03/17 06:15: White Blood Count 12.8H, Red Blood Count 3.40L, Hemoglobin 9.8L, Hematocrit 30.1L, Mean Corpuscular Volume 88, Mean Corpuscular Hemoglobin 28.9, Mean Corpuscular Hemoglobin Concent 32.6, Red Cell Distribution Width 13.3, Platelet Count 390, Mean Platelet Volume 6.7, Neutrophils (%) (Auto) 67.3, Lymphocytes (% ) (Auto) 18.5L, Monocytes (%) (Auto) 10.8H, Eosinophils (%) (Auto) 2.8, Basophils (%) (Auto) 0.5, Sodium Level 139, Potassium Level 3.4, Chloride Level 102, Carbon Dioxide Level 22, Anion Gap 15, Blood Urea Nitrogen 3L, Creatinine 0.6, Estimat Glomerular Filtration Rate > 60, Glucose Level 91, Calcium Level 8.3L Current Medications Medications (Trade) Dose Ordered Sig/Ara Route PRN Reason Start Time Stop Time Status Last Admin Dose Admin Acetaminophen (Tylenol) 650 mg Q4H PRN ORAL fever 05/01/17 00:30 05/31/17 00:29 05/03/17 03:26 Albuterol/ Ipratropium (DuoNeb 0.5-3(2.5)mg/3ml) 3 ml Q4H PRN HHN Shortness of Breath 05/01/17 00:30 05/06/17 00:29 Cefepime HCl/ Dextrose (Maxipime/D5W) 110 ml @ 220 mls/hr Q12HR@1100,2300 IV 05/02/17 23:00 05/09/17 22:59 05/03/17 10:10 Dextrose (Dextrose 50%) STAT PRN IV Hypoglycemia 05/01/17 00:30 05/31/17 00:29 Heparin Sodium (Porcine) (Heparin 5000 units/ml) 5,000 units EVERY 12 HOURS SUBQ 05/01/17 09:00 05/31/17 08:59 Morphine Sulfate 3 mg 3 mg Q4H PRN IVP Moderate Pain (Pain Scale 4-6) 05/02/17 15:30 05/09/17 15:29 05/03/17 15:14 Nitroglycerin (Ntg) 0.4 mg Q5M x 3 DOSES PRN SL Prn Chest Pain 6/26/17 00:30 05/31/17 00:29 Ondansetron HCl (Zofran) 4 mg Q6H PRN IVP Nausea & Vomiting 05/01/17 00:30 05/31/17 00:29 Polyethylene Glycol (Miralax) 17 gm DAILYPRN PRN ORAL Constipation 05/01/17 00:30 05/31/17 00:29 Sodium Chloride (Sodium Chloride 1000ml bag) 1,000 ml @ 100 mls/hr Q10H IVLG 05/02/17 00:21 06/01/17 00:20 05/03/17 15:15 Temazepam (Restoril) 15 mg HSPRN PRN ORAL Insomnia 05/01/17 00:30 05/08/17 00:29 JANEEN STORY May 03, 2017 15:27
[2017-05-03] MEDS ORDERED: LEVOFLOXACIN500 MG ORAL (15:55)
[2017-05-03 16:00] VITALS: BP 132/86
[2017-05-03] MEDS ORDERED: Tubing IV Secondary IV ONE (18:49)
--- NOTE | 2017-05-04 15:28 | Discharge Summary ---
Discharge Summary Hospital Course Date of Admission Apr 30, 2017 at 23:25 Date of Discharge May 03, 2017 at 18:50 Admitting Diagnosis ACUTE RENAL FAILURE,UTI,ABDOMINAL PAIN HPI Gladis Tai is a 21 year old female who was admitted on Apr 30, 2017 at 23:25 for Acute Renal Failure,Urinary Tract Infection, Hospital Course [id number] Discharge Discharge Disposition Patient was discharged to Home (01) Discharge Diagnoses: Kathy Boyd NP May 04, 2017 15:28
--- NOTE | 2017-05-04 23:16 | Discharge Summary 2 SIG ---
DATE OF ADMISSION: 04/30/2017 DATE OF DISCHARGE: 05/03/2017 CONSULTANTS: 1. Martinez Jon M.D. 2. Reggie Jackman M.D. BRIEF HOSPITAL COURSE: The patient is a 21-year-old female with no medical history presented with chief complaint of abdominal pain and fever that has been ongoing for the last few days. On evaluation at ED, laboratories showed leukocytosis, WBC was elevated to 26. Creatinine was elevated. Urine toxicology was positive for amphetamine and marijuana. CT scan of the abdomen and pelvis showed diffuse mild mesenteric edema, which is nonspecific, prominent fluid-filled left upper quadrant small bowel loops with wall thickening, and trace free pelvic fluid. She was given IV resuscitation and was admitted for sepsis and urinary tract infection with acute kidney injury. She was given cefepime. Urine culture showed growth of mixed gram-positive organism. Repeat culture did not isolate any growth. Dr. Leach was consulted. There was no diarrhea, however, was unable to tolerate regular diet. He was given pain management and Zofran p.r.n. Diet was gradually advanced. Renal ultrasound done was negative for hydronephrosis. Kidney functions improved and was tolerating a soft diet. The patient was eventually discharged home on oral antibiotics of levofloxacin 500 mg for four more days. FINAL DIAGNOSES: 1. Sepsis. 2. Acute kidney injury. 3. Intractable abdominal pain. 4. Methamphetamine abuse. 5. Probable pyelonephritis/urinary tract infection. 6. Enteritis. 7. Dehydration. 8. Acute kidney injury. Sheryl Velasquez M.D. I have been assigned to dictate discharge summary on this account and I was not involved in the patient's management. Kathy Boyd N.P. DR: NATHEN JOB#: [id number] CC:
== END 2017-05-03 18:50 | disposition home or self-care (01) | DRG 720 ==
LOC: EMR 20:15 → 4E 23:25 → EDBEDREQ 23:27
DX: A41.9 Sepsis, unspecified organism (principal); N17.9 Acute kidney failure, unspecified; I95.9 Hypotension, unspecified; E86.0 Dehydration; F19.10 Other psychoactive substance abuse, uncomplicated; F15.10 Other stimulant abuse, uncomplicated; I10 Essential (primary) hypertension; K52.9 Noninfective gastroenteritis and colitis, unspecified; N12 Tubulo-interstitial nephritis, not specified as acute or chronic
CPT/HCPCS: 36415; 74176; 76775; 80048; 80053; 80300; 81001; 81003; 81025; 82550; 83605; 83690; 83735; 84100; 84300; 84439; 84550; 85007; 85025; 87040; 87086; 89050; 94664; J2405